=== PATIENT | female | born 1955 | race Two or more races ===

== ENCOUNTER 2017-05-03 01:29 | Inpatient (IN) | payer MEDICAID ==
[~2017-05-03] VITALS: Ht 165.1 cm; Wt 69.8 kg
[2017-05-03 02:30] LABS: Urine RBC None Seen /hpf (0 - 4)
[2017-05-03 02:39] LABS: Urine Bilirubin Negative (Negative); Urine Blood Negative /uL (Negative); Urine Color Colorless (Yellow); Urine Glucose Normal (Normal); Urine Ketone Negative (Negative); Urine Nitrite Negative (Negative); Urine Squamous Epithelial Cell FEW /hpf (<5); Urine Urobilinogen Normal (Negative)
[2017-05-03 02:42] LABS: Basophils # (auto) 0 uL; Basophils % (auto) 0.2 % (0.0-2.0); Eosinophils # (auto) 0.1 uL; Eosinophils % (auto) 0.8 % (0.0-7.0); Hematocrit 40.2 % (36.0-46.0); Hemoglobin 13.5 g/dL (12.2-16.2); Lymphocytes # (auto) 1.9 uL; Lymphocytes % (auto) 15.6 % (10.0-50.0); Mean Corpuscular Hemoglobin 29.5 pg (28.0-32.0); Mean Corpuscular Hgb Conc. 33.5 g/dL (32.0-36.0); Mean Corpuscular Volume 88.1 fL (80.0-100.0); Mean Platelet Volume 9.4 fL (6.9-10.8); Monocytes # (auto) 0.8 uL; Monocytes % (auto) 6.2 % (0.0-12.0); Neutrophils # (auto) 9.5 uL; Neutrophils % (auto) 77.2 % (37.0-80.0); Platelet Count (auto) 224 10^3/uL (140-450); Red Cell Distribution Width 12.9 % (11.8-14.3); White Blood Cell 12.3 10^3/uL (4.4-10.8)
[2017-05-03 02:59] LABS: INR 0.95 (0.9-1.15); Partial Thromboplastin Time 25.7 sec (22.64-33.71); Prothrombin Time 10.3 sec (9.37-12.3)
[2017-05-03 03:00] LABS: Albumin 4.1 g/dL (3.4-5.0); Amylase 74 U/L (25-115); Anion Gap 12 (5-15); Aspartate Aminotransferase 12 U/L (15-37); BUN/Creatinine Ratio 22.4; Blood Urea Nitrogen 15 mg/dL (7-18); Carbon Dioxide 22 mmol/L (21-32); Chloride 108 mmol/L (98-107); GFR African American 115 mL/min; GFR Non-African American 95 mL/min; Glucose 112 mg/dL (74-106); Sodium 142 mmol/L (136-145)
[2017-05-03 03:05] LABS: Alkaline Phosphatase 52 U/L (45-117); Bilirubin, Total 0.4 mg/dL (0.2-1.0); Total Protein 7.7 g/dL (6.4-8.2)
[2017-05-03] MEDS ORDERED: SODIUM CHLORIDE 0.9% 1,000 ML IV ONE (07:00)
[2017-05-03] MEDS ORDERED: PANTOPRAZOLE 40 MG/10 ML VIAL IV ONE (07:00)
[2017-05-03] MEDS ORDERED: metroNIDAZOLE 500MG/100ML 100 ML IV ONE (07:00)
[2017-05-03] MEDS ORDERED: MORPHINE SULF INJ 2 MG/ML SYRINGE 1ML IV ONE (07:00)
[2017-05-03] MEDS ORDERED: ONDANSETRON HCL 4 MG/2 ML VIAL IV ONE (07:00)
[2017-05-03] MEDS ORDERED: cefTRIAXone 1GM/50ML D5W 50 ML IV ONE (07:00)
[2017-05-03] MEDS ORDERED: ACETAMINOPHEN 325 MG TAB PO PRN (10:30)
[2017-05-03] MEDS ORDERED: DOCUSATE SOD 100 MG CAP PO PRN (10:30)
[2017-05-03] MEDS ORDERED: MORPHINE SULF INJ 2 MG/ML SYRINGE 1ML IV PRN (10:30)
[2017-05-03] MEDS ORDERED: cloNIDine HCL 0.1 MG TAB PO PRN (10:30)
[2017-05-03] MEDS ORDERED: ONDANSETRON HCL 4 MG/2 ML VIAL IV PRN (10:30)
[2017-05-03] MEDS: SODIUM CHLORIDE 0.9% 1,000 ML IV SCH ×2 (11:07→18:32)
[2017-05-03] MEDS: FAMOTIDINE 20 MG TAB PO SCH ×2 (11:07→22:51)
[2017-05-03] MEDS: HYDROcodone-ACET 5/325MG TAB PO PRN ×2 (13:02→18:29)
[2017-05-03] MEDS: metroNIDAZOLE 500MG/100ML 100 ML IV SCH ×2 (14:14→22:50)
[2017-05-03 21:56] VITALS: BP 100/72
[2017-05-03] MEDS: TEMAZEPAM 15 MG CAP PO PRN (22:52)
[2017-05-04] MEDS: metroNIDAZOLE 500MG/100ML 100 ML IV SCH ×4 (04:13→20:12)
[2017-05-04] MEDS: SODIUM CHLORIDE 0.9% 1,000 ML IV SCH ×3 (04:14→22:25)
[2017-05-04 05:11] VITALS: BP 100/60
[2017-05-04] MEDS: HYDROcodone-ACET 5/325MG TAB PO PRN (06:30)
[2017-05-04 07:03] LABS: Basophils # (auto) 0 uL; Basophils % (auto) 0.2 % (0.0-2.0); Eosinophils # (auto) 0.1 uL; Hematocrit 34.6 % (36.0-46.0); Hemoglobin 11.7 g/dL (12.2-16.2); Lymphocytes # (auto) 1.5 uL; Lymphocytes % (auto) 18.1 % (10.0-50.0); Mean Corpuscular Hemoglobin 30.1 pg (28.0-32.0); Mean Corpuscular Hgb Conc. 33.9 g/dL (32.0-36.0); Mean Platelet Volume 9.5 fL (6.9-10.8); Monocytes # (auto) 0.5 uL; Monocytes % (auto) 6.6 % (0.0-12.0); Neutrophils # (auto) 6.1 uL; Neutrophils % (auto) 74.1 % (37.0-80.0); Nucleated Red Blood Cells % 0.1 %; Platelet Count (auto) 201 10^3/uL (140-450); Red Cell Distribution Width 13.3 % (11.8-14.3); White Blood Cell 8.2 10^3/uL (4.4-10.8)
[2017-05-04 07:10] LABS: Potassium 3.8 mmol/L (3.5-5.1)
[2017-05-04 07:18] LABS: Albumin 3.1 g/dL (3.4-5.0); BUN/Creatinine Ratio 14.7; Calcium 8.1 mg/dL (8.5-10.1)
[2017-05-04 07:20] LABS: Bilirubin, Total 0.7 mg/dL (0.2-1.0); Total Protein 6.5 g/dL (6.4-8.2)
[2017-05-04] MEDS: cefTRIAXone 1GM/50ML D5W 50 ML IV SCH (09:00)
[2017-05-04 09:26] VITALS: BP 102/61
[2017-05-04] MEDS: MULTIPLE VITAMIN TAB PO SCH (10:37)
[2017-05-04] MEDS: FAMOTIDINE 20 MG TAB PO SCH ×2 (10:38→22:25)
[2017-05-04] MEDS: BOOST PLUS 8 ounce PO SCH ×2 (12:00→18:20)
[2017-05-04 13:00] VITALS: BP 108/69
[2017-05-04 17:19] VITALS: BP 103/54
[2017-05-04 20:00] VITALS: BP 101/69
[2017-05-04] MEDS: TEMAZEPAM 15 MG CAP PO PRN (22:25)
[2017-05-05 01:03] VITALS: BP 101/69
[2017-05-05] MEDS: metroNIDAZOLE 500MG/100ML 100 ML IV SCH ×2 (01:57→08:05)
[2017-05-05 04:57] VITALS: BP 111/64
[2017-05-05] MEDS: SODIUM CHLORIDE 0.9% 1,000 ML IV SCH (06:25)
[2017-05-05 06:39] LABS: Basophils # (auto) 0 uL; Basophils % (auto) 0.3 % (0.0-2.0); Eosinophils # (auto) 0.1 uL; Eosinophils % (auto) 1.7 % (0.0-7.0); Hematocrit 33.8 % (36.0-46.0); Hemoglobin 11.5 g/dL (12.2-16.2); Lymphocytes # (auto) 1.6 uL; Lymphocytes % (auto) 21.3 % (10.0-50.0); Mean Corpuscular Volume 88.3 fL (80.0-100.0); Mean Platelet Volume 9.4 fL (6.9-10.8); Monocytes # (auto) 0.6 uL; Monocytes % (auto) 7.4 % (0.0-12.0); Neutrophils # (auto) 5.4 uL; Neutrophils % (auto) 69.3 % (37.0-80.0); Platelet Count (auto) 200 10^3/uL (140-450); Red Cell Distribution Width 13.2 % (11.8-14.3); White Blood Cell 7.7 10^3/uL (4.4-10.8)
[2017-05-05 06:56] LABS: Albumin 3.1 g/dL (3.4-5.0); Calcium 8.4 mg/dL (8.5-10.1); Potassium 3.8 mmol/L (3.5-5.1)
[2017-05-05 07:01] LABS: Bilirubin, Total 0.5 mg/dL (0.2-1.0); Total Protein 6.4 g/dL (6.4-8.2)
[2017-05-05] MEDS: BOOST PLUS 8 ounce PO SCH (08:04)
[2017-05-05 09:00] VITALS: BP 108/65
[2017-05-05] MEDS: MULTIPLE VITAMIN TAB PO SCH (09:12)
[2017-05-05] MEDS: FAMOTIDINE 20 MG TAB PO SCH (09:12)
[2017-05-05] MEDS: cefTRIAXone 1GM/50ML D5W 50 ML IV SCH (09:12)
[2017-05-05] MEDS ORDERED: METR500T PO (11:11)
[2017-05-05] MEDS ORDERED: PROM25TA5 PO (11:11)
[2017-05-05] MEDS ORDERED: IBUP400T21 PO (11:11)
[2017-05-05] MEDS ORDERED: CIPR-173 PO (11:11)
== END 2017-05-05 12:05 | disposition home or self-care (01) | DRG 244 ==
LOC: ER 01:33 → EDBD 01:33 → OVERFLOW 01:34 → EAST 20:45
PROVIDERS: ADMIT Internal Medicine; ATTEND Internal Medicine
DX: K57.32 Diverticulitis of large intestine without perforation or abscess without bleeding (principal); K85.90 Acute pancreatitis without necrosis or infection, unspecified; E44.0 Moderate protein-calorie malnutrition; K57.30 Diverticulosis of large intestine without perforation or abscess without bleeding; M17.12 Unilateral primary osteoarthritis, left knee; E86.0 Dehydration; Z90.710 Acquired absence of both cervix and uterus; Z82.49 Family history of ischemic heart disease and other diseases of the circulatory system; Z83.3 Family history of diabetes mellitus; Z68.25 Body mass index [BMI] 25.0-25.9, adult
CPT/HCPCS: 36415; 74176; 76705; 80053; 81001; 82150; 83690; 84484; 85025; 85610; 85730; 87040; 87086; 93005; 96365; 96367; 96375; 96376; 99291; C9113; J0696; J2405; J3490

== ENCOUNTER 2017-05-09 09:53 | Emergency (ER) | payer MEDICAID ==
[~2017-05-09] VITALS: Ht 165.1 cm; Wt 63.5 kg
[~2017-05-09 09:53] MED LIST: CIPR-173 PO; IBUP400T21 PO; METR500T PO; PROM25TA5 PO
[2017-05-09 10:05] VITALS: BP 134/89
== END 2017-05-09 10:59 | disposition home or self-care (01) ==
LOC: ER 09:53
DX: Z76.1 Encounter for health supervision and care of foundling (principal)